=== PATIENT | female | born 1980 | race Caucasian/White ===

== ENCOUNTER → 2020-03-03 10:08 | Outpatient (CLI) | payer BC, SELFPAY ==
--- NOTE | ~2020-03-03 | MM_ITS ---
EXAMINATION: MM screening andreea BI w jelain HISTORY: Screening TECHNIQUE: Craniocaudal and mediolateral oblique 3-D tomosynthesis images were obtained and synthetic 2-D images were generated. CAD analysis was submitted and interpreted. COMPARISON: No prior mammogram is available for comparison at this institution. BREAST PARENCHYMAL COMPOSITION: The breasts are extremely dense, which lowers the sensitivity of mamm ography. FINDINGS: There is no evidence of suspicious mass, calcification, or architectural distortion to sugg est malignancy in either breast. There has been no suspicious interval change. IMPRESSION: 1. No mammographic evidence of malignancy. 2. Recommend routine screening mammography in one year. BI-RADS Category 1: Negative Reviewed, dictated and finalized at location A.
== END ==
PROVIDERS: PCP Family Medicine; Visit Provider Obstetrics & Gynecology
DX: Z12.31 Encounter for screening mammogram for malignant neoplasm of breast (principal)
CPT/HCPCS: 77063; 77067

== ENCOUNTER → 2022-04-27 08:24 | Outpatient (CLI) | payer OTHER, SELFPAY ==
--- NOTE | ~2022-04-27 | MM_ITS ---
EXAMINATION: MM screening andreea BI w jelani HISTORY: Screening mammogram TECHNIQUE: Craniocaudal and mediolateral oblique 3-D tomosynthesis images were obtained and synthetic 2-D images were generated. Bilateral rotated lateral CC views. CAD analysis was submitted and interp reted. COMPARISON: 03/03/2020 bilateral screening mammogram BREAST PARENCHYMAL COMPOSITION: The breasts are extremely dense, which lowers the sensitivity of mamm ography. FINDINGS: There is no evidence of suspicious mass, calcification, or architectural distortion to sugg est malignancy in either breast. There has been no suspicious interval change. IMPRESSION: 1. No mammographic evidence of malignancy. 2. Recommend routine screening mammography in one year. BI-RADS Category 1: Negative Reviewed, dictated and finalized at location A. [employer]IST
== END ==
PROVIDERS: PCP Obstetrics & Gynecology Gynecology; Visit Provider Obstetrics & Gynecology Gynecology
DX: Z12.31 Encounter for screening mammogram for malignant neoplasm of breast (principal)
CPT/HCPCS: 77063; 77067

== ENCOUNTER 2024-09-14 08:36 | Outpatient (CLI) | payer BC, SELFPAY ==
--- NOTE | ~2024-09-14 | MM_ITS ---
EXAMINATION: MM screening andreea BI w jelani HISTORY: Screening TECHNIQUE: Craniocaudal and mediolateral oblique 3-D tomosynthesis images were obtained and synthetic 2-D images were generated. CAD analysis was submitted and interpreted. COMPARISON: 04/27/2022 and 03/03/2020 BREAST PARENCHYMAL COMPOSITION: The breasts are extremely dense, which lowers the sensitivity of mamm ography. FINDINGS: Stable parenchymal pattern without suspicious microcalcifications, architectural distortion, discrete masses or significant asymmetry. IMPRESSION: 1. No mammographic evidence of malignancy. 2. Recommend routine screening mammography in one year. BI-RADS Category 1: Negative Reviewed, dictated and finalized at location A.
--- OUTSIDE RECORDS SUMMARY | 2024-09-14 09:07 | XMS_ITS | Clinical Summary ---
Author Organization [facility] Address [address] [place] [id number] Care Team Providers Care Emblem Cutter Name Role Phone Dylan Agee MD Primary Care Provider [phone] Social History Tobacco Use Types Packs/Day Years Used Date Smoking Tobacco: Never Assessed Comments Unknown Sex and Gender Information Value Date Recorded Sex Assigned at Not on file Legal Sex Female 11:10 AM CDT Gender Identity Not on file Sexual Orientation Not on file Plan of Treatment Health Maintenance Due Date Last Done Comments Cervical Cancer Screening Pa p Smear (Age 30 to 64) Every 3 Years 1978 Colorectal Cancer Screening Colonoscopy (10 Years) 1978 Annual Physical 1981 Hepatitis C 1996 DTaP, Tdap and Td Vaccines ( 1 - Tdap) 1997 Hepatitis B Vaccines (1 of 3 - 19+ 3-dose series) 1997 Cervical Cancer Screening Pa p with HPV Testing (Age 30 to 64) Every 5 Years 2008 Cervical Cancer Screening [facility] HPV 2008 Mammogram Screening 2018 COVID-19 Vaccine (3 - 2023-2 5 season) 2024 05/21/2021, 04/26/2021 Influenza Adult (#1) 2024 04/13/2020 Meningococcal B Vaccine Aged Out No l onger eligible based on patient's age to complete this topic Meningococcal Vaccine Aged Out No faby ava eligible based on patient's age to complete this topic Pneumococcal Vaccine: Pediatrics (0 to 5 Years) and At-Risk Patients (6 to 64 Years) Aged Out No longer eligible b ased on patient's age to complete this topic RSV Immunizations Under 20 Months Aged Out No longer eligible b ased on patient's age to complete this topic Insurance [facility] Care Teams Emblem Cutter Relationship Specialty Start Date End Date Dylan Agee MD [address] [place] [phone] PCP - General FAMILY PRACTICE 02/06/22
--- OUTSIDE RECORDS SUMMARY | 2024-09-14 09:07 | XMS_ITS | Clinical Summary ---
Author Organization [facility] [address] - [address] Address [address] [facility] [address] [place] [address] Phone Care Team Providers Care Kiln Mechanic Name Role Phone Not Found, Stl Primary Care Provider Unavailabl e Allergies No known active allergies Social History Tobacco Use Types Packs/Day Years Used Date Smoking Tobacco: Never Smokeless Tobacco: Never Alcohol Use Standard Drinks/Week Comments No 0 (1 standard drink = 0.6 oz pur e alcohol) Comments Yes Sex and Gender Information Value Date Recorded Sex Assigned at Not on file Legal Sex Female 11:46 AM CDT Gender Identity Not on file Sexual Orientation Not on file Occupation Industry Job Start Date Job End Date Not on file Not on file Not on file Not on file Plan of Treatment Health Maintenance Due Date Last Done Comments DTAP/TDAP/TD VACCINES (1 - Tdap) 1997 HEPATITIS B VACCINES (1 of 3 - 19+ 3-dose series) 1997 PAP SMEAR 1999 CERVICAL CANCER SCREENING 2008 HPV/Cotest 2008 PAP SMEAR 2008 BREAST CANCER SCREENING 2018 COLORECTAL SCREENING 2023 Colorectal Cancer Screening 2023 FIT-DNA Q 3 years 2023 FIT/FOBT Q 1 year 2023 Flex Sig/CT Colonography Q 5 years 2023 INFLUENZA VACCINE (#1) 2024 RSV VACCINE (60+ or ) (1 - 1-dose 75+ series) 2053 HPV VACCINES Aged Out No longer eligi ble based on patient's age to complete this topic PNEUMOCOCCAL VACCINE 0-49 YEARS Aged Out No longer eligible based on patient's age to complete this topic Insurance [employer] [facility] Care Teams Kiln Mechanic Relationship Specialty Start Date End Date Not Found, Stl NO ADDRESS ON FILE PCP - General 03/05/13
== END 2024-09-14 08:37 | disposition home or self-care (01) ==
PROVIDERS: PCP Family Medicine; Visit Provider Obstetrics & Gynecology Gynecology
DX: Z12.31 Encounter for screening mammogram for malignant neoplasm of breast (principal)
CPT/HCPCS: 77063; 77067